=== PATIENT | female | born 1950 ===

== ENCOUNTER → 2016-12-06 | Outpatient (CLI) | payer OTHER ==
--- NOTE | 2016-12-07 04:58 | HKNOTE ---
DATE OF SERVICE: 12/06/2016 CHIEF COMPLAINT: Left hip pain. HISTORY OF PRESENT ILLNESS: Ms. Atkinson is a 65-year-old female who resides in a nursing facility. She is currently nonambulatory. She is in a wheelchair. She is complaining of pain in the left gr oin for the last 5 years. The pain has been progressively worsening. It is constant. There are no alleviating factors. It radiates to the left knee. She denies any back pain. She has had previou s pain medications with no pain relief. She has had previous therapy without any pain relief. She has no other complaints. PAST MEDICAL HISTORY: Morbid obesity, neurogenic bladder, microcytic anemia. MEDICATIONS: She is unsure of her current medications. PAST SURGICAL HISTORY: She denies any previous surgeries. SOCIAL HISTORY: Denies tobacco, alcohol or drug use. FAMILY HISTORY: Noncontributory. ALLERGIES: NO KNOWN DRUG ALLERGIES. GAIT: She is unable to stand. She is in a wheelchair. LEFT HIP EXAMINATION: Painful passive range of motion. The left lower extremity is shortened april red to the right lower extremity. Limited range of motion due to pain. Positive Abdias's test. MOTOR: 3/5 to 4/5 strength of hamstrings, quadriceps, tibialis anterior, gastrocsoleus. 0 to 1+ pulses, dorsalis pedis. There are chronic venous stasis changes of the bilateral lower extremities. 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 There is shortening of the left lower extremity. There is destruction of the joint space. 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 PLAN: I discussed treatment options with Ms. Atkinson. I explained to her that she has advanced deg enerative changes of the left hip. I discussed nonsurgical and surgical options. I explained to he r that given her obesity, that she is at a high risk for total joint infection. I also discussed po stoperative rehabilitation following joint replacement. She would like to obtain a second opinion. We will request an appointment with Dr. Allen. She will follow up with me as needed. Dictated By: EFRAIN PATRICK/GILSON Conf#: [id number] [facility]#: [id number]
== END | disposition home or self-care (01) ==
LOC: HKI 14:11
PROVIDERS: ATTEND Orthopaedic Surgery Adult Reconstructive Orthopaedic Surgery
DX: M24.852 Other specific joint derangements of left hip, not elsewhere classified (principal); M25.552 Pain in left hip; E66.01 Morbid (severe) obesity due to excess calories
CPT/HCPCS: G0463